=== PATIENT | male | born 1970 | race Caucasian/White ===

== ENCOUNTER → 2023-08-18 03:37 | Outpatient (CLI) | payer BC, SELFPAY ==
--- NOTE | 2023-08-18 07:30 | DI.RAD_ITS ---
Exam(s) XR KNEE RT 3V AP,LAT,YING EXAM: XR KNEE RT 3V AP,LAT,YING CLINICAL HISTORY: ? Cyst,Right knee pain, hx of trauma.M25.561. TECHNIQUE: 2D digital imaging was performed. COMPARISON: No exams were available for comparison FINDINGS: 3 views There is a long intra femur secured by 2 parallel screws at the level the femoral condyles and there is also a single screw across the proximal tibial fibular joint and screw channels in the proximal ti slime from prior medial plate which appears to have extended downward from the tibial plateau. There is advanced osteoarthritic degenerative change in the medial lateral compartments. Bone-on-bon e narrowing of the lateral compartment. Also severe degenerative change in the medial compartment. There is an element of valgus deformity. No osteomyelitis given the hardware here. IMPRESSION: Previous surgeries as described above. Severe advanced degenerative osteoarthritic change. There al so appears to be an osteochondral defect on the articular surface of the lateral femoral condyle. DATA REPOSITORY: RADIATION DOSE DELIVERED:
== END ==
PROVIDERS: PCP Physician Assistant; Visit Provider Physical Therapy Assistant
DX: M25.561 Pain in right knee (principal); Z98.890 Other specified postprocedural states
CPT/HCPCS: 73562

== ENCOUNTER 2023-09-05 08:53 | Day surgery (SDC) | payer BC, SELFPAY ==
[2023-09-05 09:15] VITALS: BP 104/80; PULSE 97; RESP 16; TEMP 36.8; O2SAT 98
[2023-09-05] MEDS: Lactated Ringers 1,000 ML 80 ML IV (09:27)
--- NOTE | 2023-09-05 09:39 | W.ANESPRE ---
General Info Date of Service Date Performed: 09/05/23 Height: 5 ft 8 in Weight: 83.9 kg Body Mass Index (BMI): 28.1 Surgical Procedure: Operation Date: 09/05/23 09:50 Proposed Procedure Side Surgeon tato Fisher, Meds Allergies and Home Medications Allergies Allergy/AdvReac Type Severity Reaction Status Date / Time Penicillins Allergy Severe Swelling/Ed Verified 09/05/23 09:10 félix Home Medication Medication Instructions Recorded bisacodyl 5 mg tablet,delayed 5 mg PO ONCE #4 tabs 08/14/23 release (Dulcolax (bisacodyl)) polyethylene glycol 3350 17 17 g PO ONCE #238 grams 08/14/23 gram/dose oral powder Current Visit Medications: Current Medications Generic Name Dose Route Start Last Admin Trade Name Freq PRN Reason Stop Dose Admin Hyoscyamine Sulfate 0.125 mg 09/05/23 06:21 Hyoscyamine 0.125 Mg Sl/Oral/Chew SL 10/05/23 06:20 DIRECTED PRN Ringer's Solution 1,000 mls @ 80 mls/hr 09/05/23 06:00 09/05/23 09:27 IV 10/04/23 23:59 80 mls/hr INFUSION REYNA Administration IV Miscellaneous Supplies 1 each 09/05/23 06:00 Iv Access IV 10/04/23 23:59 DIRECTED REYNA Ondansetron HCl 4 mg 09/05/23 06:21 Ondansetron 4 Mg/2 Ml Vial IVP 10/05/23 06:20 Q4H PRN PRN Nausea / Vomiting Sodium Chloride 0 ml 09/05/23 06:00 Normal Saline Flush 10 Ml Syr IV 10/04/23 23:59 PRN PRN Sodium Chloride 0 ml 09/05/23 06:00 Normal Saline 10 Ml Vial IJ 10/04/23 23:59 DIRECTED PRN Sterile Water 0 ml 09/05/23 06:00 Water,Injection,Sterile 10 Ml Vial IJ 10/04/23 23:59 DIRECTED PRN PFSH Active Problems Active Problems: Problem Status Onset Code Cyst of right knee joint M25.861 Traumatic arthritis of right knee M12.561 Right knee pain M25.561 Medical History Medical History Smoker Post-traumatic osteoarthritis of right knee with symptomatic hardware Family history of colon cancer in father Surgical History Surgical History History of knee surgery knee reconstruction and hardware removal Tobacco Smoking/Tobacco Use Status: Current every day Tobacco Type: cigarettes Smoking packs per day: 0.5 Smoking cigarettes per day: 10.0 Alcohol Alcohol Intake: current Alcohol intake frequency: holidays/special occasions only Substance Use Substance use: Never Substance use type: does not use Vital Signs and Lab Results Vital Signs Most Recent Vital Signs in EMR: Most Recent Vital Signs Temp Pulse Resp BP Pulse Ox 36.8 C 97 H 16 104/80 98 09/05/23 09:15 09/05/23 09:15 09/05/23 09:15 09/05/23 09:15 09/05/23 09:15 Lab Results Blood Type / Crossmatch: No Data to Display Complete Blood Count: No Data to Display Complete Metabolic Panel: No Data to Display Liver Function Panel: No Data to Display Coagulation Panel: No Data to Display Cardiac Panel: No Data to Display Arterial Blood Gas: No Data to Display Venous Blood Gas: No Data to Display Pancreas Panel: No Data to Display Thyroid Panel: No Data to Display Infectious Disease: No Data to Display Blood Cultures: No Data to Display Toxicology Panel: No Data to Display Anesthesia Assessment and Plan Anesthesia History Personal History: No History of Anesthesia Complications Family History: No Family History of Anesthesia Complications Exercise Tolerance Exercise Tolerance: Metabolic Equivalents>4 Pertinent Negatives Pertinent Negatives: No Symptoms of GERD, No Major Cardiovascular Symptoms or Complaints, No Major Pulmonary Symptoms or Complaints and No History of CVA/TIA Cardiac & Pulmonary Exam Cardiac Exam: Normal S1/S2 Heart Sounds Pulmonary Exam: Clear Bilateral Breath Sounds Cardiac and Pulmonary Comment:: Smoker Implantable Cardiac Device Does patient have a Pacemaker or an ICD?: No Airway Exam Known Difficult Airway: No Mallampati Class: 2 Mouth Opening: Normal (> 3cm) Thyromental Distance: Greater than 3 cm Neck Range of Motion: Full ROM Neck Circumference: Normal Teeth Condition: Normal Dentition ASA Classification ASA Score: ASA 2 Emergency Case?: No NPO Status NPO Status: NPO Clears >2 hours, Solids >8 hours Anesthesia Plan Resuscitation Status: Full Code Anesthesia Technique: General Anesthesia Airway Planned: Natural Airway Monitors Used: Standard Monitors Preoperative Comments:: 53 y/o male with a history of right knee OA, smoker, presents for colonoscopy screening pre-op. He has a family history of colon cancer in his father, paternal uncle and paternal grandmother.
[2023-09-05 09:43] VITALS: BMI 28.1
--- NOTE | 2023-09-05 10:39 | W.COLOREPORT ---
Date of service: 09/05/23 Time of Service: 11:23 Colonoscopy Report Date of procedure: 09/05/23 Pre-op diagnosis general: Father had colon cancer at age 55 Post-op diagnosis procedure note: other (Diverticula/internal hemorrhoids) Surgeon: Snow Fisher Anesthesia Type: General LMA/ETT Estimated blood loss (mL): 0 Pathology: none sent Complications: None Disposition: same day Prep: Miralax/Dulcolax Retraction Time: 18 Procedure Description: After informed consent was obtained the patient was taken to the procedure room and placed in a left decubitous position. Monitors were applied and a time out was done. The patients name, date of , procedure, allergies to medications and metal in their body was reviewed. The patient was then sedated. Once sedated and comfortable a rectal exam was done. External exam was normal. Internal exam revealed a normal sphincter tone and no palpable masses. The prostate without masses. The scope was then introduced and retrofelexed. Grade 2 internal hemorrhoids x 2 columns were identified. The scope was then advanced to the cecum without difficulty. The TI and appendiceal orifice were identified.. The scope was then slowly retracted over 18 minutes back into the rectum. No polyps or AVMs are visualized. The mucosa is pink and healthy with a normal vascular pattern. He does have diverticula that do carry all the way over to the right flexure. They are small but very numerous. There is no signs of active bleeding or infection. The scope was removed and the patient was woken up and taken back to Same day surgery in stable condition. The patient tolerated the procedure well and there were no immediate complications. Follow up: The patient should follow up in 5 years unless they develop changes in bowel habits or other new gastrointestinal complaints. [place] Bowel Prep [place] Bowel Prep Right Colon: 3 Left Colon: 3 Transverse Colon: 3 Total Score: 9
--- NOTE | 2023-09-05 10:40 | PDOC.DSDIS_ITS ---
Date of service: 09/05/23 Time of Service: 11:26 Discharge Plan Disposition Patient Disposition: Home Condition: Good Discharge Details Reason For Visit: Colon scope Attending Provider: Snow Fisher Primary Care Provider: Lon Johnson Home Meds and New Rx's Prescriptions: Discontinued bisacodyl [Dulcolax (bisacodyl)] 5 mg tablet,delayed release (DR/EC) 5 mg PO ONCE Qty: 4 0RF Rx Instructions: Take per colonoscopy instructions provided by ordering providers office polyethylene glycol 3350 17 gram/dose powder 17 g PO ONCE Qty: 238 0RF Rx Instructions: Take per colonoscopy instructions provided by ordering providers office Discharge Instructions Additional Instructions: DSU Colonoscopy Post- Op Instructions Instructions for Everyone who is given Anesthesia: For your safety, please do the following for the next twenty-four (24) hours: *Do Not operate a motor vehicle (car, truck, motorcycle, etc.) *Do Not drink alcoholic beverages or use any recreational drugs for the first 24 hours or while taking pain medications. The medications in your body may have a reaction that can be dangerous. *Do Not make any important decisions or sign any important papers. Findings: Diverticula and internal hemorrhoids-make sure you are moving your bowels regularly and not straining. If you find that you are having issues with constipation or straining, then we recommend you start a fiber product such as Metamucil daily. Follow up: Repeat colonoscopy every 5 years. 1. No lifting over 20 pounds or strenuous activity for the first 24 hours after your procedure. After 24 hours there are no restrictions on your activity but you may feel fatigued for a few days. 2. After you arrive home you may have a light meal and return to your normal diet as you can tolerate it without feeling sick to your stomach. 3. You may have a bloated, gaseous feeling in your belly (abdomen) after a colonoscopy. Passing gas and belching will help. Walking or lying down on your left side with your knees flexed may relieve the discomfort. Call the office at [phone] (Office) or [phone] (Hospital) right away if you notice any of the following: a.Vomiting of blood or ?coffee ground stools?. b.Rectal bleeding 1Tbsp, blood clots or continuous bleeding. c.Severe belly (abdominal) pain. d.A hard distended belly (abdomen) and an inability to pass gas. 4. Please don?t expect to have a normal BM (bowel movement) for 2-3 days after your procedure. 5. If there are questions regarding the findings of your procedure, please contact your doctor 6. If you are unable to contact your doctor with a problem, contact the hospital at [phone]. 7. Continue all your regular medications unless directed otherwise. I understand the above instructions and have no questions. Signature of Patient or Adult Escort Name of Responsible Adult Escort Signature of Nurse Date/Time Activity:: See above Diet:: See above Discharge Orders Discharge Orders: Discharge Order (Routine); Ordered 09/05/23 Ordered By: Snow Fisher DS: Diagnosis Discharge Diagnosis (1) Family history of colon cancer in father: Asessment and Plan: The patient is seen and examined after their colonoscopy.? The patient has been able to pass gas.? They are not having abdominal pain.? They have been able to tolerate liquids and a snack.? They do not have any nausea or vomiting.? They are not having any chest pain or shortness of breath.??? They are not having any rectal bleeding. Their vital signs have been stable-see nursing notes. We discussed findings during their colonoscopy, and any biopsies that were done/polyps that were removed. The patient will be sent a letter with any biopsy results, and when to repeat the colonoscopy.-see discharge instructions. Patient was given explicit instructions to follow-up regarding colonoscopy-refer to discharge instructions.? We reviewed resumption of medications. Patient verbalized understanding and discharged in stable and satisfactory condition- See nursing notes. (2) Smoker: (3) History of knee surgery: (4) Diverticular disease of large intestine: Status: Acute
[2023-09-05 11:18] VITALS: BP 105/69; PULSE 85; RESP 16; TEMP 36.2; O2SAT 95
[2023-09-05 11:25] VITALS: BP 108/76; PULSE 84; RESP 16; TEMP 36.4; O2SAT 97
--- NOTE | 2023-09-05 11:43 | W.ANESPOSTOP ---
Postoperative Evaluation Date, Time and Location Date Performed: 09/05/23 Time Performed: 11:25 Patient Location: Day Surgery Unit Vital Signs Most Recent Imported Vital Signs: Most Recent Vital Signs Temp Pulse Resp BP Pulse Ox 36.4 C L 84 16 108/76 97 09/05/23 11:25 09/05/23 11:25 09/05/23 11:25 09/05/23 11:09/05/23 11:25 Pain Score Most Recent Pain Score: Most Recent Pain Score Pain Level 0 09/05/23 11:40 Assessment Mental Status: Awake (Alert & Oriented to Patient Baseline) Airway and Respiratory Function: Patent airway with normal (patient baseline) respiratory exam Cardiovascular Function: Hemodynamically Stable Hydration Status: Adequately Hydrated Nausea & Vomiting: No Nausea or Vomiting Pain: Pt. Denies Any Pain Peripheral Nerve Block: Patient did not receive a nerve block
== END 2023-09-05 12:20 | disposition home or self-care (01) ==
PROVIDERS: PCP Physician Assistant; Visit Provider Surgery
PROC: 0DJD8ZZ Inspection of Lower Intestinal Tract, Via Natural or Artificial Opening Endoscopic (ICD-10-PCS; CPT 45378; principal; 2023-09-05 09:45)
DX: Z80.0 Family history of malignant neoplasm of digestive organs (principal); F17.200 Nicotine dependence, unspecified, uncomplicated; K57.30 Diverticulosis of large intestine without perforation or abscess without bleeding; Z12.11 Encounter for screening for malignant neoplasm of colon; K64.1 Second degree hemorrhoids
CPT/HCPCS: 45378; J2704